=== PATIENT | female | born 1960 | race Caucasian/White ===

== ENCOUNTER 2018-12-23 05:03 | Observation (INO) | payer MEDICARE ==
[2018-12-23] MEDS ORDERED: MORPHINE SULFATE 4 MG/ML SYRINGE IV STA (05:20)
[2018-12-23] MEDS ORDERED: SODIUM CHLORIDE 0.9% 1,000 ML IV STA (05:20)
[2018-12-23] MEDS ORDERED: MORPHINE SULFATE 2 MG/ML SYRINGE IVP PRN (05:20)
[2018-12-23] MEDS ORDERED: SODIUM CHLORIDE 0.9% 1,000 ML IV ONE (05:20)
[2018-12-23] MEDS ORDERED: PIPERACILLIN-TAZOBACTAM 3.375 GM in SODIUM CHLORIDE 0.9% 100 ML IVPB STA (05:21)
--- NOTE | 2018-12-23 05:23 | ED ---
Abdominal Pain HPI - General Chief Complaint: Abdominal Pain Stated Complaint: Abdominal Pain Time Seen by Provider: 12/23/18 05:10 Source: EMS, RN notes reviewed, old records reviewed Mode of arrival: EMS Limitations: no limitations - History of Present Illness Initial Comments: This is a 50-year-old female the ER for evaluation. Presents today for ev aluation regarding abdominal pain. Patient is accepted in transfer for evaluation of gallbladder disease, found of acute cholecystitis. Patient states her abdominal pain is currently controlled mild nausea no vomiting. No significant complaints MD Complaint: abdominal pain (Right upper quadrant) -: hour(s) Location: RUQ Radiation: RUQ, epigastric Migration to: epigastric Severity: moderate Severity scale (1-10): 5 Quality: cramping, stabbing Consistency: intermittent Improves With: nothing Worsens With: nothing - Related Data Home Medications Medication Instructions Recorded Confirmed Cholecalciferol (Vitamin D3) 2,000 unit PO DAILY 12/23/18 12/23/18 [Vitamin D3] Citalopram Hydrobromide [CeleXA] 10 mg PO DAILY 12/23/18 12/23/18 Cyanocobalamin (Vitamin B-12) 1,000 mcg PO DAILY 12/23/18 12/23/18 [Vitamin B-12] Glatiramer Acetate 40 mg SQ HS 12/23/18 12/23/18 Losartan [Cozaar] 25 mg PO DAILY 12/23/18 12/23/18 Tolterodine [Detrol] 2 mg PO DAILY 12/23/18 12/23/18 Allergies Allergy/AdvReac Type Severity Reaction Status Date / Time No Known Allergies Allergy Verified 12/23/18 05:11 Review of Systems ROS Statement: Those systems with pertinent positive or pertinent negative responses have been documented in the HPI. ROS Other: All systems not noted in ROS Statement are negative. Past Medical History Additional Past Medical History / Comment(s): MS, hx of gall stones/gallbladder "attacks". History of Any Multi-Drug Resistant Organisms: None Reported Past Surgical History: Tonsillectomy Past Psychological History: No Psychological Hx Reported Smoking Status: Never smoker Past Alcohol Use History: Occasional Past Drug Use History: None Reported General Exam - General Exam Comments Initial Comments: Right upper quadrant tenderness Limitations: no limitations General appearance: alert, in no apparent distress Head exam: Present: atraumatic, normocephalic, normal inspection Eye exam: Present: normal appearance, PERRL, EOMI. Absent: scleral icterus, conjunctival injection, periorbital swelling ENT exam: Present: normal exam, mucous membranes moist Neck exam: Present: normal inspection. Absent: tenderness, meningismus, lymphadenopathy Respiratory exam: Present: normal lung sounds bilaterally. Absent: respiratory distress, wheezes, rales, rhonchi, stridor Cardiovascular Exam: Present: regular rate, normal rhythm, normal heart sounds. Absent: systolic murmur, diastolic murmur, rubs, gallop, clicks GI/Abdominal exam: Present: soft, normal bowel sounds. Absent: distended, tenderness, guarding, rebound, rigid Extremities exam: Present: normal inspection, full ROM, normal capillary refill. Absent: tenderness, pedal edema, joint swelling, calf tenderness Back exam: Present: normal inspection Neurological exam: Present: alert, oriented X3, CN II-XII intact Psychiatric exam: Present: normal affect, normal mood Skin exam: Present: warm, dry, intact, normal color. Absent: rash Course Vital Signs 12/23/18 05:04 Temperature 97.7 F Pulse Rate 73 Respiratory 18 Rate Blood Pressure 153/78 O2 Sat by Pulse 94 L Oximetry - Reevaluation(s) Reevaluation #1: 12/23/18 05:46 Medical record transfer paperwork is reviewed Spoke with patient's transferring physician Reevaluation #2: 12/23/18 05:46 Patient has pain control Medical Decision Making - Medical Decision Making 50 female the ER for evaluation of viral quadrant abdominal pain. Patient be admitted for antibiotics, cholecystitis evaluation by surgery Disposition Clinical Impression: Acute cholecystitis Disposition: ADMITTED IP TO THIS HOSP Condition: Good Is patient prescribed a controlled substance at d/c from ED?: No
[2018-12-23 05:57] LABS: Basophils % (A) 0 %; Eosinophils # (A) 0.1 k/uL (0-0.7); Eosinophils % (A) 2 %; HGB 12.5 gm/dL (11.4-16.0); Lymphocytes # (A) 1.6 k/uL (1.0-4.8); Lymphocytes % (A) 21 %; MCH 28.4 pg (25.0-35.0); MCV 86.1 fL (80.0-100.0); Mean Platelet Volume 8.8; Monocytes # (A) 0.3 k/uL (0-1.0); Monocytes % (A) 4 %; Neutrophils # (A) 5.5 k/uL (1.3-7.7); Neutrophils % (A) 71 %; Platelet Count 203 k/uL (150-450); RBC 4.41 m/uL (3.80-5.40); RDW 13.4 % (11.5-15.5); WBC 7.7 k/uL (3.8-10.6)
[2018-12-23] MEDS ORDERED: ACETAMINOPHEN TAB 325 MG TAB PO PRN (05:59)
[2018-12-23] MEDS ORDERED: ONDANSETRON 4 MG/2 ML VIAL IVP PRN (05:59)
[2018-12-23 06:06] LABS: ALT 28 U/L (9-52); AST 20 U/L (14-36); African American GFR (CKD) >90 (>60 ml/min/1.73 sqM); Albumin 3.7 g/dL (3.5-5.0); Alkaline Phosphatase 70 U/L (38-126); Amylase 32 U/L (30-110); Anion Gap 8 mmol/L; Blood Urea Nitrogen 17 mg/dL (7-17); Calcium 9.6 mg/dL (8.4-10.2); Carbon Dioxide 23 mmol/L (22-30); Chloride 108 mmol/L (98-107); Glucose 111 mg/dL (74-99); INR 0.9 (<1.2); Partial Thromboplastin Time 22.6 sec (22.0-30.0); Potassium 4.5 mmol/L (3.5-5.1); Prothrombin Time 9.8 sec (9.0-12.0); Sodium 139 mmol/L (137-145); Total Bilirubin 0.5 mg/dL (0.2-1.3); Total Protein 6.5 g/dL (6.3-8.2)
[2018-12-23 06:39] VITALS: BMI 32.1
--- NOTE | 2018-12-23 08:03 | US ---
EXAMINATION TYPE: US gallbladder DATE OF EXAM: 12/23/2018 COMPARISON: NONE CLINICAL HISTORY: pain. RUQ pain EXAM MEASUREMENTS: Liver Length: 16.2 cm Gallbladder Wall: 0.4 cm CBD: 0.8 cm Right Kidney: 11.3 x 5.0 x 5.9 cm Pancreas: visualized portions wnl Liver: difficult to penetrate, some probably fatty sparing near gallbladder. Gallbladder: two mobile shadowing stones, one measures 2.0 cm, and the second measures 1.9 cm, hypoe choic area around wall could be fluid. There is wall thickening. Evidence for sonographic Mercer's sign: Yes CBD: measures 0.8 cm Right Kidney: No hydronephrosis or masses seen The pancreas is unremarkable. The liver is normal in size without biliary dilatation. It is echogenic and may be fatty infiltrated. The fatty sparing near the gallbladder. There are at least 2 stones within the gallbladder. The gallbladder wall is thickened measuring 4 mm. There is a positive sonographic Mercer's sign. The distal common hepatic duct measures 8 mm. The right kidney is unremarkable. IMPRESSION: 1. Cholelithiasis and probable acute cholecystitis. 2. Probable fatty infiltration of the liver. IMPRESSION:
[2018-12-23 08:44] VITALS: BP 128/76; PULSE 69; RESP 16; TEMP 98.1
--- NOTE | 2018-12-23 09:37 | P.GSHP ---
History of Present Illness H&P Date: 12/23/18 50-year-old female presented to the emergency department as a transfer from an outside facility secondary to concern for cholecystitis. She presented to the outside facility with complaints of epigastric and right upper quadrant pain. This woke her from her sleep suddenly. She also complained of nausea but denied any emesis episodes. She states that she has had 1 gallbladder attack in the past. CT of the abdomen and pelvis was performed at that time and was suspicious for cholecystitis. Apparently, there is no surgical coverage at the outside facility and she was transferred to the ER at this facility. Ultrasound was performed at this ER and she is noted to have some gallbladder wall thickening and cholelithiasis. She states her pain has resolved. She denies any fevers, chills, chest pain or shortness of breath. - Review of Systems All systems: negative Past Medical History Additional Past Medical History / Comment(s): MS, hx of gall stones/gallbladder "attacks". History of Any Multi-Drug Resistant Organisms: None Reported Past Surgical History: Tonsillectomy Additional Past Surgical History / Comment(s): colonoscopy Past Anesthesia/Blood Transfusion Reactions: No Reported Reaction Past Psychological History: No Psychological Hx Reported Smoking Status: Never smoker Past Alcohol Use History: Occasional Past Drug Use History: None Reported - Past Family History Mother Family Medical History: Diabetes Mellitus Sister(s) Family Medical History: Diabetes Mellitus Brother(s) Family Medical History: Diabetes Mellitus Medications and Allergies Home Medications Medication Instructions Recorded Confirmed Type Cholecalciferol (Vitamin D3) 2,000 unit PO DAILY 12/23/18 12/23/18 History [Vitamin D3] Citalopram Hydrobromide [CeleXA] 10 mg PO DAILY 12/23/18 12/23/18 History Cyanocobalamin (Vitamin B-12) 1,000 mcg PO DAILY 12/23/18 12/23/18 History [Vitamin B-12] Glatiramer Acetate [Copaxone] 40 mg IM SUTUTH 12/23/18 12/23/18 History Losartan [Cozaar] 25 mg PO DAILY 12/23/18 12/23/18 History Tolterodine Tartrate [Detrol LA] 4 mg PO DAILY 12/23/18 12/23/18 History Allergies Allergy/AdvReac Type Severity Reaction Status Date / Time No Known Allergies Allergy Verified 12/23/18 07:50 Surgical - Exam Osteopathic Statement: *. No significant issues noted on an osteopathic structural exam other than those noted in the History and Physical/Consult. Vital Signs Temp Pulse Resp BP Pulse Ox 97.7 F 73 18 153/78 94 L 12/23/18 05:04 12/23/18 05:04 12/23/18 05:04 12/23/18 05:04 12/23/18 05:04 - General well developed, well nourished, no distress - Eyes PERRL - ENT no hearing loss - Respiratory No difficulty with respiration - Abdomen Soft, mild tenderness to the right upper quadrant, nondistended, no rebound, no guarding - Psychiatric oriented to time, oriented to person, oriented to place Results - Labs 12/23/18 05:37 12/23/18 05:37 Abnormal Lab Results - Last 24 Hours (Table) 12/23/18 Range/Units 05:37 Chloride 108 H (98-107) mmol/L Glucose 111 H (74-99) mg/dL Diabetes panel 12/23/18 Range/Units 05:37 Sodium 139 (137-145) mmol/L Potassium 4.5 (3.5-5.1) mmol/L Chloride 108 H (98-107) mmol/L Carbon Dioxide 23 (22-30) mmol/L BUN 17 (7-17) mg/dL Creatinine 0.68 (0.52-1.04) mg/dL Glucose 111 H (74-99) mg/dL Calcium 9.6 (8.4-10.2) mg/dL AST 20 (14-36) U/L ALT 28 (9-52) U/L Alkaline Phosphatase 70 (38-126) U/L Total Protein 6.5 (6.3-8.2) g/dL Albumin 3.7 (3.5-5.0) g/dL Calcium panel 12/23/18 Range/Units 05:37 Calcium 9.6 (8.4-10.2) mg/dL Albumin 3.7 (3.5-5.0) g/dL Pituitary panel 12/23/18 Range/Units 05:37 Sodium 139 (137-145) mmol/L Potassium 4.5 (3.5-5.1) mmol/L Chloride 108 H (98-107) mmol/L Carbon Dioxide 23 (22-30) mmol/L BUN 17 (7-17) mg/dL Creatinine 0.68 (0.52-1.04) mg/dL Glucose 111 H (74-99) mg/dL Calcium 9.6 (8.4-10.2) mg/dL Adrenal panel 12/23/18 Range/Units 05:37 Sodium 139 (137-145) mmol/L Potassium 4.5 (3.5-5.1) mmol/L Chloride 108 H (98-107) mmol/L Carbon Dioxide 23 (22-30) mmol/L BUN 17 (7-17) mg/dL Creatinine 0.68 (0.52-1.04) mg/dL Glucose 111 H (74-99) mg/dL Calcium 9.6 (8.4-10.2) mg/dL Total Bilirubin 0.5 (0.2-1.3) mg/dL AST 20 (14-36) U/L ALT 28 (9-52) U/L Alkaline Phosphatase 70 (38-126) U/L Total Protein 6.5 (6.3-8.2) g/dL Albumin 3.7 (3.5-5.0) g/dL - Imaging CT scan - abdomen: report reviewed CT scan - pelvis: report reviewed US - abdomen: report reviewed, image reviewed (Gallstones noted along with gallbladder wall thickening) Assessment and Plan (1) Acute cholecystitis Narrative/Plan: 58-year-old female with cholecystitis - I did review the patient's CT from previous hospital along with current ultrasound and laboratory values. It does appear that the patient does have cholecystitis. I did recommend surgical intervention. I did attempt to schedule the surgery for today, however I was informed by anesthesia that multiple orthopedic cases are already scheduled and as today is a Monday, there is no available staff for a nonemergent surgery. Surgery would not be able to be performed at the earliest until late this evening or early ton, but more likely tomorrow. I did discuss this with the patient. The patient states that her pain has improved and she would prefer not to stay in the hospital waiting for surgery if her surgery is not emergent. At this point, she is surgically stable for discharge with plan for elective cholecystectomy in the next 48 hours. I did discuss taking antibiotics and standing on a bland, low fat, no fried, no greasy, no spicy food diet. The patient is agreeable with this plan. Current Visit: Yes Status: Acute Code(s): K81.0 - ACUTE CHOLECYSTITIS SNOMED Code(s): 04252662
--- NOTE | 2018-12-23 09:42 | P.DS ---
Providers Date of admission: 12/23/18 05:20 Attending physician: Marian Carter DO Primary care physician: Fili Delgado - Discharge Diagnosis(es) (1) Acute cholecystitis Current Visit: Yes Status: Acute Hospital Course: Patient was admitted for cholecystitis. Refer to H&P note. Plan for outpatient cholecystectomy. Patient will be taking antibiotics until that time. Pertinent Studies: Ultrasound of gallbladder Patient Condition at Discharge: Good Plan - Discharge Summary Discharge Rx Participant: Yes New Discharge Prescriptions: New Amoxicillin/Potassium Clav [Augmentin 875-125 Tablet] 1 tab PO Q12HR #14 tab Continue Losartan [Cozaar] 25 mg PO DAILY Citalopram Hydrobromide [CeleXA] 10 mg PO DAILY Cyanocobalamin (Vitamin B-12) [Vitamin B-12] 1,000 mcg PO DAILY Cholecalciferol (Vitamin D3) [Vitamin D3] 2,000 unit PO DAILY Tolterodine Tartrate [Detrol LA] 4 mg PO DAILY Glatiramer Acetate [Copaxone] 40 mg IM SUTUTH Discharge Medication List Amoxicillin/Potassium Clav [Augmentin 875-125 Tablet] 1 tab PO Q12HR #14 tab 12/23/18 [Rx] Cholecalciferol (Vitamin D3) [Vitamin D3] 2,000 unit PO DAILY 12/23/18 [History] Citalopram Hydrobromide [CeleXA] 10 mg PO DAILY 12/23/18 [History] Cyanocobalamin (Vitamin B-12) [Vitamin B-12] 1,000 mcg PO DAILY 12/23/18 [History] Glatiramer Acetate [Copaxone] 40 mg IM SUTUTH 12/23/18 [History] Losartan [Cozaar] 25 mg PO DAILY 12/23/18 [History] Tolterodine Tartrate [Detrol LA] 4 mg PO DAILY 12/23/18 [History] Follow up Appointment(s)/Referral(s): Fili Delgado MD [Primary Care Provider] - 1-2 days Marian Carter DO [Doctor of Osteopathic Medicine] - 1-2 Days (Patient will be called by office for scheduling surgery on 12/25/2018) Activity/Diet/Wound Care/Special Instructions: Stay on a low-fat, bland, no fried, no greasy, no spicy food diet Take antibiotics as prescribed Surgery will be scheduled for 12/25/2018 Discharge Disposition: HOME SELF-CARE
[2018-12-23] MEDS ORDERED: PIPERACILLIN-TAZOBACTAM 3.375 GM in SODIUM CHLORIDE 0.9% 100 ML IVPB SCH (14:00)
== END 2018-12-23 10:47 | disposition home or self-care (01) ==
LOC: EC 05:03 → 6PED 05:20
PROVIDERS: ADMIT Surgery; ATTEND Surgery
DX: K80.00 Calculus of gallbladder with acute cholecystitis without obstruction (principal); G35 Multiple sclerosis; Z83.3 Family history of diabetes mellitus; Z79.899 Other long term (current) drug therapy
CPT/HCPCS: 96366; 96365; 99285; 80053; 82150; 83690; 85025; 85610; 85730; 87040; 76705; G0378; J2543

== ENCOUNTER → 2023-04-25 | Outpatient (CLI) | payer MEDICARE ==
--- NOTE | 2023-04-25 15:21 | MR ---
EXAMINATION TYPE: MR brain wo/w con DATE OF EXAM: 04/25/2023 11:17 AM CLINICAL INDICATION:Female, 62 years old with history of G35 MULTIPLE SCLEROSIS; PHH, MS follow-up fo r surveillance. COMPARISON: None TECHNIQUE: Multi planar, multi sequence imaging was performed through the brain including: T1, T2, In version recovery, susceptibility weighted imaging and gradient echo imaging and Diffusion weighted im aging. The patient was then given intravenous contrast and multi planar, T1 fat-saturation images wer e obtained. IV Contrast: 7.5 cc Gadavist FINDINGS: There is periventricular white matter changes some of which are orthogonal to the lateral ventricles. There is no evidence of restricted diffusion. Postcontrast imaging demonstrates no evidence for enha ncement within these white matter changes. There is an intra-axial mass within the left cerebral hemisphere with multiple vessels and blooming a rtifact around the periphery. Findings suggest vascular malformation possibly relating to cavernoma. The lesion measures measures 16 x 15 mm. Prominent vessel in the left anterior lateral aspect area coley ggestive of developmental venous anomaly. Diffusion-weighted imaging shows no evidence of restricted diffusion to suggest acute/subacute infarc t. Intracranial arterial flow voids are maintained. Midline structures show no abnormality. The bone marrow signal is within normal limits. Paranasal sinuses and mastoid air cells: No significant paranasal sinus disease. Visualized orbits: Orbital contents are intact. IMPRESSION: 1. No evidence of intracranial mass, acute/subacute infarct, or abnormal enhancement. 2. White matter changes some of which are orthogonal to the lateral ventricles suggestive of demyelin ation which could be compatible with multiple sclerosis. No evidence for active demyelination. No rosalba dence for restricted diffusion or abnormal postcontrast enhancement. 3. 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 Additionally there is an adjacent calvarial venous anomaly.
== END | disposition home or self-care (01) ==
LOC: RADMRIMAIN 10:26
PROVIDERS: ATTEND Psychiatry & Neurology Neurology
DX: G35 Multiple sclerosis (principal); R90.82 White matter disease, unspecified; G93.89 Other specified disorders of brain
CPT/HCPCS: 70553; A9585

== ENCOUNTER → 2024-06-13 | Outpatient (CLI) | payer MEDICARE ==
--- NOTE | 2024-06-13 09:38 | MR ---
EXAMINATION TYPE: MR brain wo con DATE OF EXAM: 06/13/2024 COMPARISON: Prior MRI of brain April 25, 2023 HISTORY: MS follow up TECHNIQUE: Multiplanar, multisequence imaging of the brain and brainstem is performed without IV cont rast. FINDINGS: Diffusion weighted images demonstrate no evidence of a recent infarct or other diffusion abnormality. The ventricular system and cisternal spaces remain normal in size and appearance. The brain volume i s age appropriate. Persistent periventricular white matter changes. Several large lesions again seen. For reference lesi on left posterior frontal lobe measures 2.0 x 1.1 cm axial image 21 is not significantly changed in s ize or appearance from prior study. Persistent intra-axial lesion of rim low signal in the left cereb ellar hemisphere with blooming artifact and multiple prominent adjacent vessels including anterior fe eding vessel suspicious for vascular anomaly such as cavernoma measuring near 1.6 cm grossly unchange d in size from most recent study. Midline structures redemonstrate normal morphology. The craniocervical junction appears within juan manuel l limits. Normal vascular flow voids are present. The visualized sinuses are clear and the globes are intact. Nasal septum remains deviated towards the midline. IMPRESSION: Stable central mild to moderate white matter changes presumed on basis of known demyelina ting disease. Stable left cerebellar lesion. No significant change from most recent MRI. No definitiv e new white matter lesions clearly seen. [facility], , 06/13/2024 9:36 AM
== END | disposition home or self-care (01) ==
LOC: RADMRIMAIN 08:22
PROVIDERS: ATTEND Psychiatry & Neurology Neurology
DX: G35 Multiple sclerosis (principal); R90.82 White matter disease, unspecified; G93.89 Other specified disorders of brain
CPT/HCPCS: 70551